=== PATIENT | female | born 1960 | race African-American/Black ===

== ENCOUNTER 2019-09-07 17:23 | Emergency (ER) | payer MEDICARE ==
[~2019-09-07] VITALS: Ht 162.6 cm; Wt 100.0 kg
[~2019-09-07 17:23] MED LIST: NOCURR
[2019-09-07 18:24] VITALS: BP 154/82
[2019-09-07] MEDS ORDERED: SULFAMETHOX/TRIMETH DS 800-160 MG/TABLET PO ONE (18:45)
[2019-09-07] MEDS ORDERED: DEXAMETHASONE 4 MG TABLET PO ONE (18:45)
[2019-09-07] MEDS ORDERED: DiphenhydrAMINE HCL 25 MG CAPSULE PO ONE (18:45)
== END 2019-09-07 19:04 | disposition home or self-care (01) ==
LOC: EMS 17:24
DX: S50.822A Blister (nonthermal) of left forearm, initial encounter (principal); T78.40XA Allergy, unspecified, initial encounter; F17.210 Nicotine dependence, cigarettes, uncomplicated; Z88.0 Allergy status to penicillin; Z88.5 Allergy status to narcotic agent; X58.XXXA Exposure to other specified factors, initial encounter; Y93.89 Activity, other specified; Y92.89 Other specified places as the place of occurrence of the external cause; Y99.8 Other external cause status
CPT/HCPCS: 10060; 99284; J8540